=== PATIENT | male | born 1960 | race Caucasian/White ===

== ENCOUNTER 2017-06-24 15:40 | Emergency (ER) | payer BC ==
[2017-06-24 16:08] LABS: #Basophils 0.1 thou/uL (0.0-0.2); #Lymphocytes 1.3 thou/uL (1.20-3.40); #Monocytes 1.1 thou/uL (0.11-0.59); #Neutrophils 10.3 thou/uL (1.40-6.50); %Basophils 0.8 % (0.0-1.0); %Eosinophils 0.3 % (0.0-10.0); %Lymphocytes 9.8 % (21.0-51.0); %Monocytes 8.5 % (0.0-10.0); Hematocrit 41.5 % (42.0-52.0); Mean Platelet Volume 6.4 fL (7.4-10.4); Red Blood Cell (RBC) Count 4.22 mill/uL (4.70-6.10); White Blood Cell (WBC) Count 12.8 thou/uL (4.8-10.8)
[2017-06-24 16:33] LABS: ALT (SGPT) 114 U/L (8-55); AST (SGOT) 76 U/L (5-34); Alkaline Phosphatase 127 U/L (40-150); Anion Gap 14 mmol/L (10-20); BUN (Urea Nitrogen) 17 mg/dL (8.4-25.7); Bilirubin, Total 0.7 mg/dL (0.2-1.2); CK (CPK) 99 U/L (30-200); Calc. Creatinine Clearance 0 mL/min (70-130); Calcium 9.5 mg/dL (7.8-10.44); Carbon Dioxide 26 mmol/L (22-29); Chloride 98 mmol/L (98-107); Estimated GFR-MDRD 63; Globulin 3.6 g/dL (2.4-3.5); Lipase 47 U/L (8-78); Protein, Total 7.7 g/dL (6.0-8.3)
--- NOTE | 2017-06-24 16:33 | RAD ---
AP PORTABLE VIEW CHEST 06/24/17 HISTORY: Chest pain. Two AP views of the chest obtained on 06/24/17. Comparison made to previous exam from 08/15/16. AP view chest demonstrates an area of developed air space opacity in the right upper lobe concerning for right apical mass. This was not present on previous exam of 08/15/16 nor previous exam from 7. This may represent a right upper lobe pneumonia or newly developed mass. I do recommend correlatio n with history. Followup films to resolution is recommended. IMPRESSION: Right upper lobe developed opacity concerning for mass or area of pneumonia. POS: H
[2017-06-24 16:37] LABS: Troponin I Less than 0.010 ng/mL (< 0.028)
[2017-06-24] MEDS ORDERED: Acetaminophen 500 MG TAB ONE (16:41)
[2017-06-24] MEDS ORDERED: Ibuprofen 200 MG TAB ONE (21:18)
== END 2017-06-24 21:40 | disposition home or self-care (01) ==
LOC: ERS 15:40
DX: J18.9 Pneumonia, unspecified organism (principal); K21.9 Gastro-esophageal reflux disease without esophagitis; J45.909 Unspecified asthma, uncomplicated; F17.210 Nicotine dependence, cigarettes, uncomplicated
CPT/HCPCS: 36415; 71010; 80053; 82550; 82553; 83690; 84484; 85025; 87040; 93005; 94640; 96365; 96366; 96367; 99406; J0696; J1956

== ENCOUNTER 2017-06-29 17:19 | Inpatient (IN) | payer BC ==
[~2017-06-29 17:19] MED LIST: ISOVUE-370 76%-LOCM 1 ML ONE
[2017-06-29 18:24] LABS: #Eosinphils 0.1 thou/uL (0.0-0.7); #Lymphocytes 2.2 thou/uL (1.20-3.40); #Monocytes 0.9 thou/uL (0.11-0.59); #Neutrophils 10.1 thou/uL (1.40-6.50); %Eosinophils 0.8 % (0.0-10.0); %Lymphocytes 16.3 % (21.0-51.0); %Monocytes 6.6 % (0.0-10.0); Hematocrit 39.7 % (42.0-52.0); Red Blood Cell (RBC) Count 3.99 mill/uL (4.70-6.10); White Blood Cell (WBC) Count 13.3 thou/uL (4.8-10.8)
[2017-06-29 18:43] LABS: ALT (SGPT) 63 U/L (8-55); AST (SGOT) 25 U/L (5-34); Alkaline Phosphatase 132 U/L (40-150); Anion Gap 13 mmol/L (10-20); BUN (Urea Nitrogen) 11 mg/dL (8.4-25.7); Bilirubin, Total 0.5 mg/dL (0.2-1.2); Calc. Creatinine Clearance 0 mL/min (70-130); Calcium 9.7 mg/dL (7.8-10.44); Carbon Dioxide 27 mmol/L (22-29); Chloride 101 mmol/L (98-107); Estimated GFR-MDRD 75; Globulin 3.7 g/dL (2.4-3.5); Protein, Total 7.7 g/dL (6.0-8.3)
--- NOTE | 2017-06-29 19:39 | RAD ---
AP VIEW CHEST: 06/29/17 HISTORY: Pneumonia nine days ago. AP view chest is obtained on 06/29/17. Comparison made to previous exam from 06/24/17. AP view chest again demonstrates an area of opacity in the right upper lobe unchanged in size or shap e. Continue with followup radiographs electively. The left lung is well aerated. IMPRESSION: Right upper lobe opacity remains compatible with an area of pneumonia or mass. POS: [facility]
[2017-06-29 20:11] LABS: Troponin I Less than 0.010 ng/mL (< 0.028)
--- NOTE | 2017-06-29 21:43 | PDOC.EVN ---
Event Note - Event Note Event Note: [id number] H&P dictated 1. Pneumonia 2. sepsis 3. asthma plan: see orders
[2017-06-29] MEDS ORDERED: PROVENTIL INHALER 6.7 G (200 INHALATIONS) INH PRN (22:42)
--- NOTE | 2017-06-29 23:15 | CT ---
CONTRAST ENHANCED CT CHEST 06/29/17 HISTORY: Right upper lobe pneumonia versus mass, fever. Contrast enhanced CT of the chest is performed. IV contrast was given. There is a cavitary right upper lobe mass with central areas of necrosis. This may represent a right upper lobe mass versus cavitary pneumonia. There is an enlarged right paratracheal lymph node, diamet er measuring 8.8 x 14.8 mm. Mild right hilar enlarged lymph node also seen. Diameter measuring 16.6 x 11.4 mm. IMPRESSION: Right upper lobe cavitary mass with right paratracheal and right hilar lymph node enlargement. POS: [facility]
[2017-06-29 23:59] VITALS: BMI 29.6
--- NOTE | 2017-06-30 06:02 | HP ---
DATE OF ADMISSION: 06/29/2017 CHIEF COMPLAINT: Cough, fever. HISTORY OF PRESENT ILLNESS: Patient is 57-year-old male started having cough and fever past the last 3 weeks, associated with sputum production. Cough persisted. The patient then initially went to [facility] 2 weeks back. Patient was started on prednisone christine and also Z-Larry. Patient finished a course, symptoms did not improve. Patient then started having fever and chills also, so he came to the ER last . Patient was started on Levaquin. Patient took Levaquin for the past 5 days, b ut the fever persisted, associated with some cough and active fatigue also. Also complains of dyspne a. Denies any diarrhea, denies any bloody stools and denies any black stools. Symptoms persisted so he came to the ER. PAST MEDICAL HISTORY: Asthma. PAST SURGICAL HISTORY: Hysterectomy. ALLERGIES: CODEINE, PENICILLIN. SOCIAL HISTORY: Denies smoking, positive for alcohol, denies any drugs. MEDICATIONS: Reviewed. REVIEW OF SYSTEMS: Constitutional: Positive for fever and chills. Eyes: Denies any vision problem s. Ears: Denies any hearing loss. Neck: Denies any neck pain. Cardiovascular: Denies any chest pain, denies any palpitation. Respiratory: Positive for dyspnea. Positive for cough and sputum pro duction. Gastrointestinal: Denies nausea, vomiting. Cranial nerve system: Denies syncope. Psychi atric: Denies anxiety. Musculoskeletal: Denies any joint deformities. All other review of systems are reviewed and are negative. PHYSICAL EXAMINATION: CONSTITUTIONAL/VITAL SIGNS: At the time of H&P performed, blood pressure is 130/70, pulse ox 95%, af ebrile, respiratory rate 18. GENERAL: The patient appears tired. HEENT: Anterior nares patent. Nose normal. Ears normal. Teeth intact. Tongue is moist. NECK: Supple. No JVD. CARDIOVASCULAR SYSTEM: S1, S2 present. Regular rate and rhythm. No murmurs, no rubs, no gallops. RESPIRATORY SYSTEM: Positive for crackles, positive for diminished breath sounds on the right side. No accessory muscle seen. Normal effort. GASTROINTESTINAL: Abdomen soft, nontender, no guarding, no organomegaly, no masses felt. MUSCULOSKELETAL: No edema. CRANIAL NERVE SYSTEM: Awake, follows commands. Speech clear. PSYCHIATRIC: Mood appropriate at this time. LABORATORY DATA: At the time of H&P performed, influenza test is negative. BMP shows sodium 137, po tassium 4.4, chloride 101, CO2 of 27, BUN of 11, creatinine 1.02. AST 25, ALT 63, alkaline phosphata se 132, CK-MB 2.2, albumin 4, total protein 7.7, white count 13.3, hemoglobin 13.1, platelet count is 254,000. ASSESSMENT AND PLAN: The patient is a 57-year-old male. 1. Pneumonia. Plan to start the patient on IV Azactam and vancomycin also. Plan to consult Pulmona ry and ID to evaluate the patient. Chest x-ray positive for right upper lobe infiltrate. We will go ahead and get a CT chest to evaluate the infiltrate. Need to rule out any cavitary lesion also. Pl an to keep patient on AWOL precautions for now. 2. Sepsis secondary to pneumonia. Monitor white count. Repeat BMP in a.m. Plan to do blood cultur es. Plan to check Legionella, Streptococcus pneumonia, urinary antigen. 3. History of asthma. Continue breathing treatments. Monitor patient status closely. Case was discussed in detail with the patient.
[2017-06-30] MEDS ORDERED: Acetaminophen 325 MG TAB PO PRN (09:26)
[2017-06-30] MEDS: Aztreonam 2 GM in Sodium Chloride 0.9% 100 ML IVPB SCH ×2 (09:35→21:15)
[2017-06-30] MEDS: Enoxaparin Sodium 40 MG/0.4 ML SYRINGE SC SCH (09:42)
[2017-06-30] MEDS: Vancomycin HCl 1.5 GM in Sodium Chloride 0.9% 250 ML 300 ML IVPB SCH ×2 (11:35→22:39)
--- NOTE | 2017-06-30 12:49 | CON ---
DATE OF CONSULTATION: 30/06/2017 CONSULTING PHYSICIAN: Haider Hudson M.D. REASON FOR CONSULTATION: Right upper lobe mass/pneumonitis. HISTORY OF PRESENT ILLNESS: This is a 57-year-old male who became ill around . He prese nted to Urgent Care and was prescribed a Z-TRAM. He came back to the ER last and he had imag ing performed which demonstrated a right upper lobe density. He was prescribed Levaquin and he has t aken all the 2 pills. Despite that, he has had persistent cough. He has actually had some hemoptysi s. He has had about 10 pounds weight loss and he has been having night sweats. He came back to the emergency room last night with these symptoms. He was re-imaged and this included the performance of a CT scan which showed a cavitary right upper lobe mass measuring about 8 cm. He has some nonspecif ic mediastinal lymphadenopathy. He says he has no previous history of TB. 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 He denies any previous history of HIV. PAST MEDICAL HISTORY: Asthma. PAST SURGICAL HISTORY: Unremarkable. ALLERGIES: CODEINE, PENICILLIN, and SULFA DRUGS. SOCIAL HISTORY: He is a 2 pack per day smoker, now down to about 2 cigarettes per day. Occasionally consumes alcohol. He manages properties. MEDICATIONS PRIOR TO ADMISSION: Hydrocodone, Qvar, Proventil, and Nexium. REVIEW OF SYSTEMS: Remarkable for the night sweats, fever, chills, chest pain, hemoptysis and 10-phillip nd weight loss, otherwise negative. PHYSICAL EXAMINATION: VITAL SIGNS: Temperature is 99.0, pulse 72, respirations 20, O2 saturation 97%, blood pressure 115/7 3. GENERAL: He is a healthy-appearing male in no distress. HEENT: Pupils react. Sclerae anicteric. Oropharynx clear. NECK: No palpable adenopathy or JVD. LUNGS: He has crackles in the right upper lobe, best heard posteriorly. Left side is clear. CARDIAC: S1, S2 regular without murmur. ABDOMEN: Soft and nontender. EXTREMITIES: No clubbing, cyanosis, or edema. LABORATORY DATA: His flu test was negative. White blood cell count 13, hematocrit 39, platelet coun t 554. Sodium 137, potassium 4.4, chloride 101, CO2 27, BUN 11, creatinine 1.0, glucose 88. ASSESSMENT: Cavitary right upper lobe mass. Differential diagnoses would include abscessing pneumon ia, tuberculosis, and lung cancer. Certainly, he has symptoms that are very suggestive of tuberculos is. RECOMMENDATIONS: 1. Rule out TB with serial smears. Continue IV antibiotics as you are doing. Dr. Santos has been co nsulted and may want to add this, as I am not sure the current regimen provided enough anaerobic cove rage. 2. If AFBs are negative, then consider for bronchoscopy. 3. Check HIV test.
--- NOTE | 2017-06-30 14:32 | PDOC.PN ---
- Subjective Encounter Start Date: 06/30/17 Encounter Start Time: 09:40 Pt seen for followup re: pneumonia. Denies chest pain. Cough+. Sputum+. - Objective MAR Reviewed: Yes Vital Signs & Weight: Vital Signs (12 hours) Temp Pulse Resp BP Pulse Ox 06/30/17 11:38 97.7 F 78 20 108/69 96 06/30/17 08:00 97.7 F 78 20 115/73 96 06/30/17 04:00 98.3 F 80 18 111/69 97 Weight Weight 189 lb I&O: 06/29/17 06/30/17 07/01/17 06:59 06:59 06:59 Intake Total 600 Balance 600 Result Diagrams: 06/29/17 18:12 06/29/17 18:11 Phys Exam - Physical Examination Constitutional: NAD HEENT: PERRLA, moist MMs, sclera anicteric, oral pharynx no lesions Neck: no nodes, no JVD, supple, full ROM Respiratory: no wheezing, no rhonchi RUL crackles Cardiovascular: RRR, no rub Gastrointestinal: soft, non-tender, no distention, positive bowel sounds Musculoskeletal: pulses present Neurological: moves all 4 limbs Psychiatric: normal affect, A&O x 3 Skin: no rash, normal turgor, cap refill <2 seconds Dx/Plan (1) Pneumonia Code(s): J18.9 - PNEUMONIA, UNSPECIFIED ORGANISM Status: Acute (2) Cavitary lesion of lung Code(s): J98.4 - OTHER DISORDERS OF LUNG Status: Acute (3) Lung mass Code(s): R91.8 - OTHER NONSPECIFIC ABNORMAL FINDING OF LUNG FIELD Status: Suspected (4) Asthma Code(s): J45.909 - UNSPECIFIED ASTHMA, UNCOMPLICATED Status: Chronic - Plan continue antibiotics, DVT proph w/lovenox Continue IV antibiotics as below. Appreciate pulmonology and ID consults. Await sputum cultures. * . Review of Systems - Review of Systems Constitutional: Chills, Sweats. negative: Fever, Weakness, Malaise Respiratory: Cough, Sputum. negative: Dry, Shortness of Breath, Hemoptysis, SOB with Excertion, Pleuritic Pain, Wheezing Cardiovascular: negative: Chest Pain, Palpitations, Orthopnea, Paroxysmal Noc. Dyspnea, Edema, Light Headedness Gastrointestinal: negative: Nausea, Vomiting, Abdominal Pain, Diarrhea, Constipation, Melena, Hematochezia Genitourinary: negative: Dysuria, Frequency, Incontinence, Hematuria, Retention - Medications/Allergies Allergies/Adverse Reactions: Allergies Allergy/AdvReac Type Severity Reaction Status Date / Time codeine Allergy Hives, Verified 06/30/17 01:31 "and throat swells" Penicillins Allergy Hives, "my Verified 06/30/17 01:31 throat swells" Sulfa (Sulfonamide Allergy Verified 06/30/17 01:42 Antibiotics) Medications: Current Medications Acetaminophen (Tylenol) 650 mg PO Q6H PRN PRN Reason: Fever > 101 Albuterol Sulfate (Proventil Hfa) 2 puff INH Q6H PRN PRN Reason: SOB &/or Wheezing Enoxaparin Sodium (Lovenox) 40 mg SC 0900 [facility] Last Admin: 06/30/17 09:42 Dose: 40 mg Aztreonam 2 gm/ Sodium (Chloride) 100 mls @ 200 mls/hr IVPB Q12HR [facility] Last Admin: 06/30/17 09:35 Dose: 100 mls Vancomycin HCl 1.5 gm/ Sodium (Chloride) 300 mls @ 200 mls/hr IVPB 1000,2200 [facility] Last Admin: 06/30/17 11:35 Dose: 300 mls Metronidazole (Flagyl) 500 mg PO TID [facility] Pantoprazole Sodium (Protonix) 40 mg PO DAILY [facility] Last Admin: 06/30/17 09:44 Dose: 40 mg Sodium Chloride (Flush - Normal Saline) 10 ml IVF Q12HR [facility] Sodium Chloride (Flush - Normal Saline) 10 ml IVF PRN PRN PRN Reason: Saline Flush
[2017-06-30] MEDS: metroNIDAZOLE 500 MG TAB PO SCH ×2 (15:57→21:15)
--- NOTE | 2017-06-30 16:43 | CON ---
DATE OF CONSULTATION: 06/30/2017 REASON FOR CONSULTATION: Cavitary pneumonia. HISTORY OF PRESENT ILLNESS: A 57-year-old with history of asthma, prior episode of pneumonia few yea rs ago who has had symptoms of cough with fever, some hemoptysis since around about 3 weeks prior to admission. Patient was treated with courses of outpatient antimicrobial therapy and also received prednisone at the beginning and at the end he received Rocephin and levofloxacin witho ut improvement. Maybe noticed some improvement with the latest regimen, but then recrudescence. The patient has been admitted and Dr. Aden has seen the patient as well. Currently, he is awake and alert. No headaches. Coughing intermittently, still with some hemoptysis. No visual symptoms, sore throat. Some toothache intermittently. He had chest pain right anteriorly, but that has improved. No back pain. No abdominal pain, diarrhea, no genitourinary symptoms, no joint symptoms. No neurol ogical symptoms. PAST MEDICAL HISTORY: Asthma, prior episode of pneumonia and C-spine decompression with fusion. ALLERGIES: CODEINE AND PENICILLIN. PENICILLIN allergic reaction was angioedema with urticaria. SOCIAL HISTORY: Works in [employer]. He is , current smoker, drinks occasionally. MEDICATION LIST: Albuterol, aztreonam, levofloxacin, Protonix, vancomycin, and at home he takes Norc o for many years now. PHYSICAL EXAMINATION: VITAL SIGNS: T-max 99, blood pressure 115/73, pulse 72, respiratory rate 18, O2 sat 96%. GENERAL: Appears in no distress, no lymphadenopathy. HEENT: Ocular movements are conjugate. Oral cavity with quite a few missing teeth, remainder ones w ith a lot of decay and gum disease. NECK: Supple, no jugular venous distention. LUNGS: Inspiratory crackles in the right upper lobe. No wheezing. HEART: S1, S2, regular rate. No S3 or S4. ABDOMEN: Soft, not distended or tender. No ascites. No bladder distention. EXTREMITIES: No joint inflammatory activity. No edema. Pulses 2+ in dorsalis pedis. Cap refill le ss than 3 seconds. Moves all extremities equally. NEUROLOGIC: Cognitive function appears to be intact. LABORATORY DATA: HIV negative. White cell count 13,000, hemoglobin 13, MCV 99, platelets 554, 76% neutrophils. Sodiu m 137, creatinine 1.02, ALT 63, bilirubin 0.5, albumin 4.0. Chest x-ray showed a right upper lobe op acity and CT of chest with right upper lobe cavitary mass with peritracheal right hilar lymphadenopat hy. ASSESSMENT: Community-acquired pneumonia with cavitary changes, hemoptysis and paratracheal and vel r lymphadenopathy. DISCUSSION: Differential diagnosis includes some Mycobacterium tuberculosis infection versus anaerob ic or a resistant pathogen cavitary pneumonitis. For example, MRSA or a resistant gram negative or m alignancy. A fungal pneumonitis is less likely, vasculitis less likely as well. AFBs have been subm itted usually and cavitary pneumonia, those areas have high concentration of bacilli and then typical ly are smear positive. If this smear turns out to be negative, then we would have to consider the al ternate possibilities and may eventually require bronchoscopy. We will add anaerobic coverage. Disc ontinue Levaquin since it did not work in the outpatient setting. Continue aztreonam, vancomycin wit h Flagyl.
[2017-07-01] MEDS ORDERED: Atropine Sulfate 0.4 mg/1 ml Vial IM SCH (08:15)
[2017-07-01] MEDS ORDERED: Morphine PF 10 MG/10 ML VIAL IM SCH (08:15)
[2017-07-01] MEDS ORDERED: Lidocaine 4% PF 5 ML AMP NEB SCH (08:15)
[2017-07-01] MEDS: metroNIDAZOLE 500 MG TAB PO SCH ×3 (08:31→21:03)
[2017-07-01] MEDS: Enoxaparin Sodium 40 MG/0.4 ML SYRINGE SC SCH (08:31)
--- NOTE | 2017-07-01 08:31 | PRG ---
DATE OF SERVICE: 07/01/2017 PULMONARY AND CRITICAL CARE PROGRESS NOTE SUBJECTIVE: Mr. Villegas feels about the same. He has had no fever overnight. PHYSICAL EXAMINATION: VITAL SIGNS: On exam, his temperature is 98.4, pulse 77, respirations 18, O2 sat 95%, blood pressure 120/75. HEENT: Unremarkable. NECK: No JVD. LUNGS: Few crackles in the right upper lobe. CARDIAC: S1 and S2 regular. ABDOMEN: Soft. EXTREMITIES: No edema. ASSESSMENT: Cavitary right upper lobe pneumonia versus cancer. PLAN: 1. Await AFBs from today. If negative, proceed with bronchoscopy tomorrow. 2. Discussed risks of bronchoscopy with the patient including bleeding, infection, accidental lung p uncture. I also explained that he will be under conscious sedation for the procedure.
[2017-07-01] MEDS: Aztreonam 2 GM in Sodium Chloride 0.9% 100 ML IVPB SCH ×2 (09:02→21:03)
[2017-07-01] MEDS: Sodium Chloride 0.9% 1,000 ML IV SCH ×2 (09:10→22:23)
[2017-07-01 09:30] LABS: Vancomycin, Trough 13.2 ug/mL
[2017-07-01] MEDS: Vancomycin HCl 1.5 GM in Sodium Chloride 0.9% 250 ML 300 ML IVPB SCH ×2 (12:10→22:15)
--- NOTE | 2017-07-01 13:10 | PDOC.PN ---
- Subjective Encounter Start Date: 07/01/17 Encounter Start Time: 10:00 Pt seen for followup re; pneumonia. Cough+, sputum+, no chest pain. - Objective MAR Reviewed: Yes Vital Signs & Weight: Vital Signs (12 hours) Temp Pulse Resp BP Pulse Ox 07/01/17 08:00 97.3 F L 77 18 103/64 97 07/01/17 04:00 98.4 F 76 18 124/77 97 Weight Weight 189 lb I&O: 06/30/17 07/01/17 07/02/17 06:59 06:59 06:59 Intake Total 600 880 Balance 600 880 Result Diagrams: 06/29/17 18:12 06/29/17 18:11 Phys Exam - Physical Examination Constitutional: NAD HEENT: moist MMs Neck: supple RUL crackles Cardiovascular: RRR Gastrointestinal: soft Neurological: moves all 4 limbs Psychiatric: normal affect Skin: no rash Dx/Plan (1) Pneumonia Code(s): J18.9 - PNEUMONIA, UNSPECIFIED ORGANISM Status: Acute (2) Cavitary lesion of lung Code(s): J98.4 - OTHER DISORDERS OF LUNG Status: Acute (3) Lung mass Code(s): R91.8 - OTHER NONSPECIFIC ABNORMAL FINDING OF LUNG FIELD Status: Suspected (4) Asthma Code(s): J45.909 - UNSPECIFIED ASTHMA, UNCOMPLICATED Status: Chronic - Plan continue antibiotics, DVT proph w/lovenox * . Continue IV antibiotics as below. Pt being ruled out for TB. May need bronch. Appreciate ID/pulmonology services input. Review of Systems - Review of Systems Constitutional: negative: Fever, Chills, Sweats, Weakness, Malaise Respiratory: Cough, Sputum. negative: Dry, Shortness of Breath, Hemoptysis, SOB with Excertion, Pleuritic Pain, Wheezing Cardiovascular: negative: Chest Pain, Palpitations, Orthopnea, Paroxysmal Noc. Dyspnea, Edema, Light Headedness - Medications/Allergies Allergies/Adverse Reactions: Allergies Allergy/AdvReac Type Severity Reaction Status Date / Time codeine Allergy Hives, Verified 06/30/17 01:31 "and throat swells" Penicillins Allergy Hives, "my Verified 06/30/17 01:31 throat swells" Sulfa (Sulfonamide Allergy Verified 06/30/17 01:42 Antibiotics) Medications: Current Medications Acetaminophen (Tylenol) 650 mg PO Q6H PRN PRN Reason: Fever > 101 Albuterol Sulfate (Proventil Hfa) 2 puff INH Q6H PRN PRN Reason: SOB &/or Wheezing Albuterol/Ipratropium (Duoneb) 3 ml NEB [facility] Stop: 07/01/17 23:00 Atropine Sulfate (Atropine) 0.4 mg IM [facility] Stop: 07/01/17 21:00 Enoxaparin Sodium (Lovenox) 40 mg SC 0900 [facility] Last Admin: 07/01/17 08:31 Dose: 40 mg Aztreonam 2 gm/ Sodium (Chloride) 100 mls @ 200 mls/hr IVPB Q12HR [facility] Last Admin: 07/01/17 09:02 Dose: 100 mls Vancomycin HCl 1.5 gm/ Sodium (Chloride) 300 mls @ 200 mls/hr IVPB 1000,2200 [facility] Last Admin: 07/01/17 12:10 Dose: 300 mls Sodium Chloride (Normal Saline 0.9%) 1,000 mls @ 50 mls/hr IV .Q20H [facility] Last Admin: 07/01/17 09:10 Dose: Not Given Lidocaine HCl (Xylocaine 4% Pf) 5 ml NEB [facility] Stop: 07/01/17 23:00 Metronidazole (Flagyl) 500 mg PO TID [facility] Last Admin: 07/01/17 08:31 Dose: 500 mg Miscellaneous Medication (Pharmacy To Dose) 0 each IVPB [facility] Morphine Sulfate (Duramorph) 10 mg IM [facility] Stop: 07/01/17 23:00 Pantoprazole Sodium (Protonix) 40 mg PO DAILY [facility] Last Admin: 07/01/17 08:31 Dose: 40 mg Sodium Chloride (Flush - Normal Saline) 10 ml IVF Q12HR [facility] Last Admin: 07/01/17 08:29 Dose: 10 ml Sodium Chloride (Flush - Normal Saline) 10 ml IVF PRN PRN PRN Reason: Saline Flush
--- NOTE | 2017-07-01 15:43 | PQF ---
CLINICAL DOCUMENTATION IMPROVEMENT CLARIFICATION FORM: ICD-10 Updated PLEASE DO AN ADDENDUM TO THE PROGRESS NOTE WITH ANY DOCUMENTATION UPDATES OR ADDITIONS AND CARRY THROUGH TO DC SUMMARY. THANK YOU. DATE: 07/01/17 ATTN: DR. CORDOVA Please exercise your independent, professional judgment in responding to the clarification form. Clinical indicators are provided on the bottom of this form for your review Please check appropriate box(s) to clarify if the following diagnosis has been ruled in our ruled out: "SEPSIS" [ ] Ruled in diagnosis [ ] Continue to treat [ ] Resolved [ ] Ruled out diagnosis [ ] Cannot rule out diagnosis [ ] Other diagnosis [ X ] Unable to determine -- no documented fever in the record In addition, please specify: Present on Admission (POA): [ ] Yes [ ] No [ ] Unable to determine For continuity of documentation, please document condition throughout progress notes and discharge summary. Thank You. CLINICAL INDICATORS - SIGNS / SYMPTOMS / LABS "INTERMITTENT FEVER" PER ER NOTE H&P 06/29: "SEPSIS SECONDARY TO PNEUMONIA" WBC 13.3 RISKS: PNEUMONIA TREATMENT: IV VANCOMYCIN (ER-PRESENT) IV LEVAQUIN (GIVEN IN ER) IV AZACTAM (06/30-PRESENT) INFECTIOUS DISEASE CONSULT BLOOD AND SPUTUM CULTURES (This form is maintained as a part of the permanent medical record) 2014 [employer] All Rights Reserved CHRISTINE [email or web address] Office: [phone] GIOVANA
--- NOTE | 2017-07-01 16:10 | PRG ---
DATE OF SERVICE: 07/01/2017 SUBJECTIVE: Stable, less cough, no chest pain, no abdominal pain or diarrhea. OBJECTIVE: VITAL SIGNS: Normal. LUNGS: With scattered inspiratory crackles, right upper lobe. HEART: S1, S2, regular rate. ABDOMEN: Soft, not distended. EXTREMITIES: Moves all extremities equally. LABORATORY DATA: Vancomycin troughs of 13. No other labs at this point. Respiratory culture sample with lots of wbc's and polymicrobial carol. AFB is pending. ASSESSMENT AND DISCUSSION: Community-acquired pneumonia with cavitary changes. Still proceeding wit h workup as indicated previously and if AFBs are negative, it looks like he is going to end up with b ronchoscopy for diagnostic purposes.
[2017-07-01] MEDS ORDERED: Mag-Al 1200 mg/1200 mg/30 ML UDCUP PO PRN (23:29)
[2017-07-01] MEDS ORDERED: Calcium Carbonate 500 MG ChewTAB PO PRN (23:29)
[2017-07-02] MEDS ORDERED: Benzocaine 20% Spray 60 ML CAN ONE (09:24)
[2017-07-02] MEDS ORDERED: Midazolam HCl 2 mg/2 ml Vial ONE (09:29)
[2017-07-02] MEDS ORDERED: Fentanyl 100 MCG/2 ML VIAL ONE (09:29)
--- NOTE | 2017-07-02 09:30 | PDOC.PN ---
- Subjective Encounter Start Date: 07/02/17 Encounter Start Time: 08:20 Pt seen for followup re: pneumonia. Cough and sputum still present. No fevers. - Objective MAR Reviewed: Yes Vital Signs & Weight: Vital Signs (12 hours) Temp Pulse Resp BP Pulse Ox 07/02/17 08:00 98 F 71 20 108/69 95 07/02/17 06:00 98.1 F 86 16 124/82 97 Weight Weight 189 lb I&O: 07/01/17 07/02/17 07/03/17 06:59 06:59 06:59 Intake Total 880 1470 Balance 880 1470 Result Diagrams: 06/29/17 18:12 06/29/17 18:11 Phys Exam - Physical Examination Constitutional: NAD HEENT: moist MMs Neck: supple Respiratory: clear to auscultation bilateral Cardiovascular: RRR Gastrointestinal: soft Neurological: moves all 4 limbs Psychiatric: normal affect Dx/Plan (1) Pneumonia Code(s): J18.9 - PNEUMONIA, UNSPECIFIED ORGANISM Status: Acute (2) Cavitary lesion of lung Code(s): J98.4 - OTHER DISORDERS OF LUNG Status: Acute (3) Lung mass Code(s): R91.8 - OTHER NONSPECIFIC ABNORMAL FINDING OF LUNG FIELD Status: Suspected (4) Asthma Code(s): J45.909 - UNSPECIFIED ASTHMA, UNCOMPLICATED Status: Chronic - Plan plan discussed w/ family, continue antibiotics, out of bed/ambulate, DVT proph w /lovenox * . Continue IV antibiotics as below. Pt to go for bronch today. Pt and updated. Review of Systems - Review of Systems Constitutional: negative: Fever, Chills, Sweats, Weakness, Malaise Respiratory: Cough, Sputum. negative: Dry, Shortness of Breath, Hemoptysis, SOB with Excertion, Pleuritic Pain, Wheezing Cardiovascular: negative: Chest Pain, Palpitations, Orthopnea, Paroxysmal Noc. Dyspnea, Edema, Light Headedness - Medications/Allergies Allergies/Adverse Reactions: Allergies Allergy/AdvReac Type Severity Reaction Status Date / Time codeine Allergy Hives, Verified 06/30/17 01:31 "and throat swells" Penicillins Allergy Hives, "my Verified 06/30/17 01:31 throat swells" Sulfa (Sulfonamide Allergy Verified 06/30/17 01:42 Antibiotics) Medications: Current Medications Acetaminophen (Tylenol) 650 mg PO Q6H PRN PRN Reason: Fever > 101 Al Hydroxide/Mg Hydroxide (Maalox) 30 ml PO Q6H PRN PRN Reason: Heartburn or Indigestion Albuterol Sulfate (Proventil Hfa) 2 puff INH Q6H PRN PRN Reason: SOB &/or Wheezing Calcium Carbonate (Tums) 1,000 mg PO Q4H PRN PRN Reason: Heartburn or Indigestion Last Admin: 07/01/17 23:35 Dose: 1,000 mg Enoxaparin Sodium (Lovenox) 40 mg SC 0900 [facility] Last Admin: 07/01/17 08:31 Dose: 40 mg Aztreonam 2 gm/ Sodium (Chloride) 100 mls @ 200 mls/hr IVPB Q12HR [facility] Last Admin: 07/01/17 21:03 Dose: 100 mls Vancomycin HCl 1.5 gm/ Sodium (Chloride) 300 mls @ 200 mls/hr IVPB 1000,2200 [facility] Last Admin: 07/01/17 22:15 Dose: 300 mls Sodium Chloride (Normal Saline 0.9%) 1,000 mls @ 50 mls/hr IV .Q20H [facility] Last Admin: 07/01/17 22:23 Dose: 1,000 mls Metronidazole (Flagyl) 500 mg PO TID [facility] Last Admin: 07/01/17 21:03 Dose: 500 mg Miscellaneous Medication (Pharmacy To Dose) 0 each IVPB ASDIR [facility] Pantoprazole Sodium (Protonix) 40 mg PO DAILY [facility] Last Admin: 07/01/17 08:31 Dose: 40 mg Sodium Chloride (Flush - Normal Saline) 10 ml IVF Q12HR [facility] Last Admin: 07/01/17 21:08 Dose: 10 ml Sodium Chloride (Flush - Normal Saline) 10 ml IVF PRN PRN PRN Reason: Saline Flush
[2017-07-02 09:50] LABS: Vancomycin, Trough 13.7 ug/mL
[2017-07-02] MEDS ORDERED: Lidocaine 1% (PF) 30 ML VIAL ONE (10:03)
[2017-07-02] MEDS: Vancomycin HCl 1.5 GM in Sodium Chloride 0.9% 250 ML 300 ML IVPB SCH ×2 (10:54→22:30)
[2017-07-02] MEDS: Enoxaparin Sodium 40 MG/0.4 ML SYRINGE SC SCH (10:55)
[2017-07-02] MEDS: Aztreonam 2 GM in Sodium Chloride 0.9% 100 ML IVPB SCH ×2 (10:56→21:39)
--- NOTE | 2017-07-02 11:05 | OP ---
DATE OF PROCEDURE: 07/02/2017 PROCEDURE: Fiberoptic bronchoscopy with transbronchial biopsy, transbronchial brush and washings. ANESTHESIA: Conscious sedation plus local. DESCRIPTION OF PROCEDURE: Informed consent was obtained from the patient. He was taken to the opera tin room. He was placed on the fluoroscopy table. Oxygen was applied by nasal cannula. Cardiopulm onary monitoring devices were applied. The patient was given a total of 4 mg of Versed at the initia tion of the procedure along with 100 mcg of fentanyl. He required 2 more mg of Versed later in the p rocedure. Total duration procedure was about 30 minutes. Topical anesthetic with viscous lidocaine was applied to the right naris. A 1% lidocaine was applied to the vocal cords and the right main emir m bronchus and right upper lobe. Hurricaine Lynn was applied to the back of the throat. The Olympu s bronchoscope was placed in the right nostril. The vocal cords were identified and adducted normall y. The trachea was normal in appearance. The left upper lobe, left lower lobe and left main stem br onchus were normal in appearance. The right mainstem bronchus, right middle lobe and right lower lob e and right upper lobe were normal in appearance, aside from some mucoid secretions. The scope was p assed into the apical segment. No endobronchial lesions were identified, but the suspicious mass in the right upper lobe was biopsied with forceps and brushed. At the conclusion of the procedure, wash ings were obtained from the right upper lobe. He tolerated the procedure well aside from coughing. He was sent to the recovery area in stable condition.
[2017-07-02 12:55] LABS: #Eosinphils 0.1 thou/uL (0.0-0.7); #Lymphocytes 1.9 thou/uL (1.20-3.40); #Monocytes 0.8 thou/uL (0.11-0.59); #Neutrophils 10.3 thou/uL (1.40-6.50); %Basophils 0.3 % (0.0-1.0); %Eosinophils 0.8 % (0.0-10.0); %Lymphocytes 14.4 % (21.0-51.0); %Monocytes 6.4 % (0.0-10.0); Hematocrit 42.7 % (42.0-52.0); Mean Platelet Volume 6.2 fL (7.4-10.4); Red Blood Cell (RBC) Count 4.27 mill/uL (4.70-6.10); White Blood Cell (WBC) Count 13.1 thou/uL (4.8-10.8)
[2017-07-02] MEDS: metroNIDAZOLE 500 MG TAB PO SCH ×3 (15:48→21:38)
[2017-07-02] MEDS ORDERED: traMADol HCl 50 MG TAB PO PRN (20:58)
[2017-07-02] MEDS ORDERED: traMADol HCl 50 MG TAB PO SCH (21:00)
[2017-07-02] MEDS ORDERED: Melatonin 3 MG TAB PO SCH (21:45)
[2017-07-03] MEDS: Sodium Chloride 0.9% 1,000 ML IV SCH (06:35)
[2017-07-03] MEDS: HYDROcodone/Acetaminophen 5/325 mg Tablet PO PRN ×3 (09:14→20:42)
[2017-07-03] MEDS: Enoxaparin Sodium 40 MG/0.4 ML SYRINGE SC SCH (09:16)
[2017-07-03] MEDS: metroNIDAZOLE 500 MG TAB PO SCH ×3 (09:16→20:42)
[2017-07-03] MEDS: Aztreonam 2 GM in Sodium Chloride 0.9% 100 ML IVPB SCH ×2 (09:19→20:41)
--- NOTE | 2017-07-03 11:45 | PRG ---
DATE OF SERVICE: 07/03/2017 SUBJECTIVE: Awake, alert, and responsive. No distress. Await results of his bronch. OBJECTIVE: VITAL SIGNS: Temperature 97, pulse 71, blood pressure 123/70, respiration rate 16. CHEST: No wheezing. CARDIAC: Normal S1, S2. LABORATORY DATA: White count is normal. H&H are unremarkable. IMPRESSION: Upper lung mass, rule out TB, fungus, malignancy. Await results of the bronch. Continue antibiotics, supportive care.
[2017-07-03] MEDS: Vancomycin HCl 1.5 GM in Sodium Chloride 0.9% 250 ML 300 ML IVPB SCH ×2 (12:33→22:10)
--- NOTE | 2017-07-03 13:57 | PDOC.PN ---
- Subjective Encounter Start Date: 07/03/17 Encounter Start Time: 09:20 Pt seen for followup re: pneumonia. Cough still +, productive. - Objective Vital Signs & Weight: Vital Signs (12 hours) Temp Pulse Resp BP Pulse Ox 07/03/17 11:22 98.0 F 79 18 108/68 95 07/03/17 08:00 97.9 F 71 16 123/70 96 07/03/17 04:50 98.0 F 86 14 112/66 95 Weight Weight 189 lb I&O: 07/02/17 07/03/17 07/04/17 06:59 06:59 06:59 Intake Total 1470 1120 600 Balance 1470 1120 600 Result Diagrams: 07/02/17 12:17 06/29/17 18:11 Phys Exam - Physical Examination Constitutional: NAD HEENT: moist MMs Neck: supple Respiratory: clear to auscultation bilateral Cardiovascular: RRR Gastrointestinal: soft Musculoskeletal: pulses present Neurological: moves all 4 limbs Psychiatric: normal affect Skin: no rash Dx/Plan (1) Pneumonia Code(s): J18.9 - PNEUMONIA, UNSPECIFIED ORGANISM Status: Acute (2) Cavitary lesion of lung Code(s): J98.4 - OTHER DISORDERS OF LUNG Status: Acute (3) Lung mass Code(s): R91.8 - OTHER NONSPECIFIC ABNORMAL FINDING OF LUNG FIELD Status: Suspected (4) Asthma Code(s): J45.909 - UNSPECIFIED ASTHMA, UNCOMPLICATED Status: Chronic - Plan continue antibiotics, out of bed/ambulate, DVT proph w/lovenox * . * s/p bronchoscopy, await cultures/cytology. * Continue Iv antibiotics as below. Review of Systems - Review of Systems Respiratory: Cough, Sputum Cardiovascular: negative: Chest Pain, Palpitations, Orthopnea, Paroxysmal Noc. Dyspnea, Edema, Light Headedness Gastrointestinal: negative: Nausea, Vomiting, Abdominal Pain, Diarrhea, Constipation, Melena, Hematochezia - Medications/Allergies Allergies/Adverse Reactions: Allergies Allergy/AdvReac Type Severity Reaction Status Date / Time codeine Allergy Hives, Verified 06/30/17 01:31 "and throat swells" Penicillins Allergy Hives, "my Verified 06/30/17 01:31 throat swells" Sulfa (Sulfonamide Allergy Verified 06/30/17 01:42 Antibiotics) Medications: Current Medications Acetaminophen (Tylenol) 650 mg PO Q6H PRN PRN Reason: Fever > 101 Last Admin: 07/02/17 21:38 Dose: 650 mg Hydrocodone Bitart/Acetaminophen ([place] 5/325) 1 tab PO Q4H PRN PRN Reason: Pain Last Admin: 07/03/17 09:14 Dose: 1 tab Al Hydroxide/Mg Hydroxide (Maalox) 30 ml PO Q6H PRN PRN Reason: Heartburn or Indigestion Albuterol Sulfate (Proventil Hfa) 2 puff INH Q6H PRN PRN Reason: SOB &/or Wheezing Calcium Carbonate (Tums) 1,000 mg PO Q4H PRN PRN Reason: Heartburn or Indigestion Last Admin: 07/01/17 23:35 Dose: 1,000 mg Enoxaparin Sodium (Lovenox) 40 mg SC 0900 [facility] Last Admin: 07/03/17 09:16 Dose: 40 mg Aztreonam 2 gm/ Sodium (Chloride) 100 mls @ 200 mls/hr IVPB Q12HR [facility] Last Admin: 07/03/17 09:19 Dose: 100 mls Vancomycin HCl 1.5 gm/ Sodium (Chloride) 300 mls @ 200 mls/hr IVPB 1000,2200 [facility] Last Admin: 07/03/17 12:33 Dose: 300 mls Sodium Chloride (Normal Saline 0.9%) 1,000 mls @ 50 mls/hr IV .Q20H [facility] Last Admin: 07/03/17 06:35 Dose: 1,000 mls Melatonin (Melatonin) 3 mg PO HS [facility] Metronidazole (Flagyl) 500 mg PO TID [facility] Last Admin: 07/03/17 09:16 Dose: 500 mg Miscellaneous Medication (Pharmacy To Dose) 0 each IVPB ASDIR [facility] Pantoprazole Sodium (Protonix) 40 mg PO DAILY [facility] Last Admin: 07/03/17 09:16 Dose: 40 mg Sodium Chloride (Flush - Normal Saline) 10 ml IVF Q12HR [facility] Last Admin: 07/03/17 09:19 Dose: 10 ml Sodium Chloride (Flush - Normal Saline) 10 ml IVF PRN PRN PRN Reason: Saline Flush Tramadol HCl (Ultram) 50 mg PO Q6H PRN PRN Reason: Pain Last Admin: 07/03/17 07:16 Dose: 50 mg
[2017-07-03] MEDS: Melatonin 3 MG TAB PO SCH (20:43)
[2017-07-04] MEDS: HYDROcodone/Acetaminophen 5/325 mg Tablet PO PRN ×2 (06:37→20:44)
[2017-07-04] MEDS: metroNIDAZOLE 500 MG TAB PO SCH ×3 (08:54→20:44)
[2017-07-04] MEDS: Enoxaparin Sodium 40 MG/0.4 ML SYRINGE SC SCH (08:55)
[2017-07-04] MEDS: Aztreonam 2 GM in Sodium Chloride 0.9% 100 ML IVPB SCH (08:55)
[2017-07-04 09:21] LABS: Vancomycin, Trough 17.3 ug/mL
[2017-07-04] MEDS: Vancomycin HCl 1.5 GM in Sodium Chloride 0.9% 250 ML 300 ML IVPB SCH (10:34)
[2017-07-04] MEDS: Sodium Chloride 0.9% 1,000 ML IV SCH ×2 (10:35→15:00)
--- NOTE | 2017-07-04 14:36 | PDOC.PN ---
- Subjective Encounter Start Date: 07/04/17 Encounter Start Time: 11:00 Pt seen for followup re: pneumonia. feels slightly better. Walking around. - Objective MAR Reviewed: Yes Vital Signs & Weight: Vital Signs (12 hours) Temp Pulse Resp BP Pulse Ox 07/04/17 11:37 97.9 F 74 16 115/68 95 07/04/17 08:00 98.3 F 63 16 95 07/04/17 07:49 98.3 F 63 16 121/78 95 07/04/17 04:34 97 Weight Weight 189 lb I&O: 07/03/17 07/04/17 07/05/17 06:59 06:59 06:59 Intake Total 1120 2670 Balance 1120 2670 Result Diagrams: 07/02/17 12:17 06/29/17 18:11 Phys Exam - Physical Examination Constitutional: NAD HEENT: moist MMs Neck: supple Respiratory: clear to auscultation bilateral Cardiovascular: RRR Gastrointestinal: soft Musculoskeletal: no edema Neurological: moves all 4 limbs Psychiatric: normal affect Dx/Plan (1) Pneumonia Code(s): J18.9 - PNEUMONIA, UNSPECIFIED ORGANISM Status: Acute (2) Cavitary lesion of lung Code(s): J98.4 - OTHER DISORDERS OF LUNG Status: Acute (3) Lung mass Code(s): R91.8 - OTHER NONSPECIFIC ABNORMAL FINDING OF LUNG FIELD Status: Suspected (4) Asthma Code(s): J45.909 - UNSPECIFIED ASTHMA, UNCOMPLICATED Status: Chronic - Plan continue antibiotics, out of bed/ambulate, DVT proph w/lovenox * . Await path report. Continue IV antibiotics as below. Await BAL cultures. Review of Systems - Review of Systems Respiratory: Cough, Sputum. negative: Dry, Shortness of Breath, Hemoptysis, SOB with Excertion, Pleuritic Pain, Wheezing Cardiovascular: negative: Chest Pain, Palpitations, Orthopnea, Paroxysmal Noc. Dyspnea, Edema, Light Headedness - Medications/Allergies Allergies/Adverse Reactions: Allergies Allergy/AdvReac Type Severity Reaction Status Date / Time codeine Allergy Hives, Verified 06/30/17 01:31 "and throat swells" Penicillins Allergy Hives, "my Verified 06/30/17 01:31 throat swells" Sulfa (Sulfonamide Allergy Verified 06/30/17 01:42 Antibiotics) Medications: Current Medications Acetaminophen (Tylenol) 650 mg PO Q6H PRN PRN Reason: Fever > 101 Last Admin: 07/02/17 21:38 Dose: 650 mg Hydrocodone Bitart/Acetaminophen ([place] 5/325) 1 tab PO Q4H PRN PRN Reason: Pain Last Admin: 07/04/17 06:37 Dose: 1 tab Al Hydroxide/Mg Hydroxide (Maalox) 30 ml PO Q6H PRN PRN Reason: Heartburn or Indigestion Albuterol Sulfate (Proventil Hfa) 2 puff INH Q6H PRN PRN Reason: SOB &/or Wheezing Calcium Carbonate (Tums) 1,000 mg PO Q4H PRN PRN Reason: Heartburn or Indigestion Last Admin: 07/01/17 23:35 Dose: 1,000 mg Cefdinir (Omnicef) 300 mg PO BID [facility] Enoxaparin Sodium (Lovenox) 40 mg SC 0900 [facility] Last Admin: 07/04/17 08:55 Dose: 40 mg Sodium Chloride (Normal Saline 0.9%) 1,000 mls @ 50 mls/hr IV .Q20H [facility] Last Admin: 07/04/17 10:35 Dose: 1,000 mls Melatonin (Melatonin) 3 mg PO HS [facility] Last Admin: 07/03/17 20:43 Dose: 3 mg Metronidazole (Flagyl) 500 mg PO TID [facility] Last Admin: 07/04/17 08:54 Dose: 500 mg Miscellaneous Medication (Pharmacy To Dose) 0 each IVPB ASDIR [facility] Pantoprazole Sodium (Protonix) 40 mg PO DAILY [facility] Last Admin: 07/04/17 08:55 Dose: 40 mg Sodium Chloride (Flush - Normal Saline) 10 ml IVF Q12HR [facility] Last Admin: 07/04/17 10:36 Dose: Not Given Sodium Chloride (Flush - Normal Saline) 10 ml IVF PRN PRN PRN Reason: Saline Flush Tramadol HCl (Ultram) 50 mg PO Q6H PRN PRN Reason: Pain Last Admin: 07/03/17 07:16 Dose: 50 mg
--- NOTE | 2017-07-04 16:44 | PRG ---
DATE OF SERVICE: 07/04/2017 SUBJECTIVE: The patient is status post bronchoscopy. PHYSICAL EXAMINATION: VITAL SIGNS: Temperature 98, sats 95%, respirations 16, pulse 63, temperature 27. Denies any diffic ulty breathing or cough. CHEST: Decreased breath sounds, no wheezing. CARDIAC: Normal S1 and S2. ABDOMEN: Soft. No masses. LABORATORY DATA: So far all his acid-fast bronch washings are negative. IMPRESSION: Right upper lung mass, cavitary; rule out tuberculosis, fungus, malignancy. PLAN: Await path report, probably deescalate antibiotics.
[2017-07-04] MEDS: Melatonin 3 MG TAB PO SCH (20:44)
[2017-07-04] MEDS: Cefdinir 300 MG CAP PO SCH (20:44)
[2017-07-05 04:26] LABS: #Eosinphils 0.3 thou/uL (0.0-0.7); #Lymphocytes 2.1 thou/uL (1.20-3.40); #Monocytes 0.7 thou/uL (0.11-0.59); #Neutrophils 6.3 thou/uL (1.40-6.50); %Basophils 0.2 % (0.0-1.0); %Eosinophils 2.8 % (0.0-10.0); %Lymphocytes 22.3 % (21.0-51.0); %Monocytes 7.9 % (0.0-10.0); Hematocrit 35.8 % (42.0-52.0); Red Blood Cell (RBC) Count 3.61 mill/uL (4.70-6.10); White Blood Cell (WBC) Count 9.4 thou/uL (4.8-10.8)
[2017-07-05 04:38] LABS: Anion Gap 13 mmol/L (10-20); BUN (Urea Nitrogen) 11 mg/dL (8.4-25.7); Calc. Creatinine Clearance 110 mL/min (70-130); Calcium 8.9 mg/dL (7.8-10.44); Carbon Dioxide 27 mmol/L (22-29); Chloride 105 mmol/L (98-107); Estimated GFR-MDRD 88
[2017-07-05] MEDS: Cefdinir 300 MG CAP PO SCH ×2 (08:18→21:55)
[2017-07-05] MEDS: Enoxaparin Sodium 40 MG/0.4 ML SYRINGE SC SCH (08:18)
[2017-07-05] MEDS: metroNIDAZOLE 500 MG TAB PO SCH ×3 (08:18→21:55)
--- NOTE | 2017-07-05 08:41 | PRG ---
DATE OF SERVICE: 07/05/2017 SUBJECTIVE: The patient feels better, had no acute complaints. PHYSICAL EXAMINATION: VITAL SIGNS: Temperature is 97.5, pulse 64, respiratory rate 16, O2 saturation 97%, blood pressure 1 11/75. HEENT: Unremarkable. NECK: No JVD. LUNGS: Fairly clear except for some wheezing in the right upper lobe. CARDIAC: S1 and S2 regular. ABDOMEN: Soft. EXTREMITIES: No edema. LABORATORY DATA: His AFB from bronchoscopy and sputum studies was negative. The pathology report is pending. ASSESSMENT: Lung abscess versus right upper lobe cancer. RECOMMENDATIONS: 1. Biopsy results should be back later today. If negative, then he will need a repeat CT scan in ab out 3 weeks. 2. Continue the antibiotics. We might want to have Dr. Santos's final recommendations for duration o f treatment for lung abscess before the patient goes home. 3. The patient should be able to go home latest by tomorrow.
[2017-07-05] MEDS: HYDROcodone/Acetaminophen 5/325 mg Tablet PO PRN ×3 (09:22→21:55)
[2017-07-05] MEDS: Sodium Chloride 0.9% 1,000 ML IV SCH (11:18)
--- NOTE | 2017-07-05 14:50 | RAD ---
TWO VIEWS CHEST: Date: 07-05-17 Comparison: 06-29-17 History: Cough. History of pneumonia. FINDINGS: There is a focal area of opacity within the right lung apex, improved when compared to 06-24-17 exam. No pneumothorax or pleural fluid. Heart and mediastinal contours are grossly unremarkable. There is i ncompletely assessed hardware overlying the cervical spine. IMPRESSION: Focal area of airspace disease noted in right lung apex, improved since 06-24-17, suggesting improving pneumonia. Significant opacity persists and thus, follow up to full resolution is advised to exclude an underlying mass. In addition to typical organisms, atypical infectious processes within the right lung apex, including tuberculosis, should be considered. POS: [facility]
--- NOTE | 2017-07-05 15:01 | PDOC.PN ---
- Subjective Encounter Start Date: 07/05/17 Encounter Start Time: 09:20 Pt seen for followup re: pneumonia. Cough better, feels better. - Objective Vital Signs & Weight: Vital Signs (12 hours) Temp Pulse Resp BP Pulse Ox 07/05/17 13:53 61 14 07/05/17 08:00 97.5 F L 64 16 97 07/05/17 07:50 97.5 F L 64 16 111/75 97 Weight Weight 189 lb I&O: 07/04/17 07/05/17 07/06/17 06:59 06:59 06:59 Intake Total 2670 Balance 2670 Result Diagrams: 07/05/17 03:57 07/05/17 03:57 Phys Exam - Physical Examination Constitutional: NAD HEENT: moist MMs Neck: supple Respiratory: clear to auscultation bilateral Cardiovascular: RRR Gastrointestinal: soft Neurological: moves all 4 limbs Psychiatric: normal affect Skin: no rash Dx/Plan (1) Pneumonia Code(s): J18.9 - PNEUMONIA, UNSPECIFIED ORGANISM Status: Acute (2) Cavitary lesion of lung Code(s): J98.4 - OTHER DISORDERS OF LUNG Status: Acute (3) Lung mass Code(s): R91.8 - OTHER NONSPECIFIC ABNORMAL FINDING OF LUNG FIELD Status: Suspected (4) Asthma Code(s): J45.909 - UNSPECIFIED ASTHMA, UNCOMPLICATED Status: Chronic - Plan continue antibiotics, PT/OT, out of bed/ambulate, DVT proph w/lovenox * . Continue antibiotics, await path result. Ambulate pt. Review of Systems - Review of Systems Constitutional: negative: Fever, Chills, Sweats, Weakness, Malaise Respiratory: Cough, Sputum. negative: Dry, Shortness of Breath, Hemoptysis, SOB with Excertion, Pleuritic Pain, Wheezing - Medications/Allergies Allergies/Adverse Reactions: Allergies Allergy/AdvReac Type Severity Reaction Status Date / Time codeine Allergy Hives, Verified 06/30/17 01:31 "and throat swells" Penicillins Allergy Hives, "my Verified 06/30/17 01:31 throat swells" Sulfa (Sulfonamide Allergy Verified 06/30/17 01:42 Antibiotics) Medications: Current Medications Acetaminophen (Tylenol) 650 mg PO Q6H PRN PRN Reason: Fever > 101 Last Admin: 07/02/17 21:38 Dose: 650 mg Hydrocodone Bitart/Acetaminophen ([place] 5/325) 1 tab PO Q4H PRN PRN Reason: Pain Last Admin: 07/05/17 14:55 Dose: 1 tab Al Hydroxide/Mg Hydroxide (Maalox) 30 ml PO Q6H PRN PRN Reason: Heartburn or Indigestion Albuterol Sulfate (Proventil Hfa) 2 puff INH Q6H PRN PRN Reason: SOB &/or Wheezing Albuterol/Ipratropium (Duoneb) 3 ml NEB [id number] Last Admin: 07/05/17 13:53 Dose: 3 ml Calcium Carbonate (Tums) 1,000 mg PO Q4H PRN PRN Reason: Heartburn or Indigestion Last Admin: 07/01/17 23:35 Dose: 1,000 mg Cefdinir (Omnicef) 300 mg PO BID [facility] Last Admin: 07/05/17 08:18 Dose: 300 mg Enoxaparin Sodium (Lovenox) 40 mg SC 0900 [facility] Last Admin: 07/05/17 08:18 Dose: 40 mg Sodium Chloride (Normal Saline 0.9%) 1,000 mls @ 50 mls/hr IV .Q20H [facility] Last Admin: 07/05/17 11:18 Dose: Not Given Melatonin (Melatonin) 3 mg PO HS [facility] Last Admin: 07/04/17 20:44 Dose: 3 mg Metronidazole (Flagyl) 500 mg PO TID [facility] Last Admin: 07/05/17 14:55 Dose: 500 mg Pantoprazole Sodium (Protonix) 40 mg PO DAILY [facility] Last Admin: 07/05/17 08:18 Dose: 40 mg Sodium Chloride (Flush - Normal Saline) 10 ml IVF Q12HR [facility] Last Admin: 07/05/17 08:19 Dose: 10 ml Sodium Chloride (Flush - Normal Saline) 10 ml IVF PRN PRN PRN Reason: Saline Flush Tramadol HCl (Ultram) 50 mg PO Q6H PRN PRN Reason: Pain Last Admin: 07/03/17 07:16 Dose: 50 mg
[2017-07-05] MEDS: Melatonin 3 MG TAB PO SCH (21:55)
[2017-07-06 04:34] LABS: #Basophils 0.1 thou/uL (0.0-0.2); #Eosinphils 0.2 thou/uL (0.0-0.7); #Lymphocytes 2.4 thou/uL (1.20-3.40); #Monocytes 0.6 thou/uL (0.11-0.59); #Neutrophils 7.1 thou/uL (1.40-6.50); %Basophils 0.8 % (0.0-1.0); %Lymphocytes 22.8 % (21.0-51.0); Hematocrit 36.3 % (42.0-52.0); Mean Platelet Volume 6.1 fL (7.4-10.4); Red Blood Cell (RBC) Count 3.65 mill/uL (4.70-6.10); White Blood Cell (WBC) Count 10.4 thou/uL (4.8-10.8)
[2017-07-06 04:51] LABS: Anion Gap 12 mmol/L (10-20); BUN (Urea Nitrogen) 13 mg/dL (8.4-25.7); Calc. Creatinine Clearance 102 mL/min (70-130); Calcium 9.1 mg/dL (7.8-10.44); Carbon Dioxide 27 mmol/L (22-29); Chloride 104 mmol/L (98-107); Estimated GFR-MDRD 80
[2017-07-06] MEDS: Enoxaparin Sodium 40 MG/0.4 ML SYRINGE SC SCH (09:20)
[2017-07-06] MEDS: Cefdinir 300 MG CAP PO SCH (09:20)
[2017-07-06] MEDS: metroNIDAZOLE 500 MG TAB PO SCH (09:20)
[2017-07-06] MEDS: Sodium Chloride 0.9% 1,000 ML IV SCH (09:22)
--- NOTE | 2017-07-06 09:49 | PRG ---
DATE OF SERVICE: 07/06/2017 SUBJECTIVE: The pathology from his bronchoscopy procedure is still pending. He feels better and has no complaints. PHYSICAL EXAMINATION: VITAL SIGNS: Temperature 98.1, pulse 59, respiration rate 16, O2 sat 93%, blood pressure 121/79. HEENT: Unremarkable. NECK: Supple. No JVD. CHEST: Clear. CARDIAC: S1 and S2 regular. ABDOMEN: Soft. EXTREMITIES: No edema. LABORATORY DATA: White blood cell count 10.4, hematocrit 36.3, platelet count 561. Sodium 139, pota ssium 3.9, BUN 13, creatinine 0.9, glucose 135. ASSESSMENT: Right upper lobe pneumonia with improving chest x-ray. RECOMMENDATION: I would send him home on a total of 14 days of Urmilaicef and Flagyl between what he re ceived in the hospital and what he does it at home. He needs to follow up in the office in 3-4 weeks and have his x-ray repeated. He can safely be discharged today and we can call him with his patholo gy results when they return.
--- NOTE | 2017-07-06 12:03 | DIS ---
DATE OF ADMISSION: 06/29/2017 DATE OF DISCHARGE: 07/06/2017 PRIMARY CARE PHYSICIAN: Dion Buchanan M.D. DISCHARGE DIAGNOSES: 1. Pneumonia. 2. Cavitary lesion of the lung. 3. Suspected lung mass. CONSULTATIONS DURING THIS HOSPITALIZATION: Infectious Diseases, Dr. Santos and Pulmonology, Dr. Clement er. CONDITION OF PATIENT ON THE DAY OF DISCHARGE: Stable. I saw Mr. Villegas on the day of discharge. He denies any chest pain or shortness of breath. Vital s igns are stable. S1 and S2 are heard, regular. Lungs are clear to auscultation bilaterally. DISCHARGE MEDICATIONS: Proventil HFA 2 puffs p.r.n., Qvar 1 puff 2 times a day, Nexium 20 mg daily, [place] p.r.n., Flagyl 500 mg 3 times a day for 14 more days, Omnicef 300 mg 2 times a day for 14 more days. HOSPITAL COURSE: Mr. Villegas is a pleasant 57-year-old gentleman who was admitted to [facility] for pneumonia. CT scan of the chest done at the time of admission showed right up per lobe cavitary mass with right paratracheal and right hilar lymph node enlargement. He was seen b y Pulmonology and Infectious Diseases services. He received intravenous antibiotics. He also had 3 negative smears for acid fast bacilli. Cultures are pending at the time of this dictation. On 07/02, he underwent bronchoscopy with transbronchial biopsy, transbronchial brush and washings. The biopsy report is pending at the time of discharge. The bronchial washings reports are also pending. Pulmonary Service will follow up with him in this regard. He improved clinically with antibiotics. He has been stepped down to oral antibiotics. Treatment du ration is 3 weeks total. He has been advised to stop smoking. On the day of discharge, he has a white count of 10,400, hemoglobin 12.2 and platelet count 561,000. Electrolytes are normal. Creatinine is 0.96. He is advised to return to work as tolerated, starting 07/13/2017. Many thanks for allowing me to participate in your patient's care. Please feel free to contact me if any questions or concerns. FOLLOWUP APPOINTMENTS: Patient is advised to follow up with his primary care physician in 3-5 days a nd with Pulmonology in 3-4 weeks. DISCHARGE DESTINATION: Home. TOTAL AMOUNT OF TIME SPENT COORDINATING THIS DISCHARGE: 33 minutes.
[2017-07-06 13:28] VITALS: BP 133/84; TEMP 98
== END 2017-07-06 13:20 | disposition home or self-care (01) | DRG 195 ==
LOC: ERS 17:19 → T4-B 20:46
PROVIDERS: ADMIT Internal Medicine; ATTEND Internal Medicine
PROC: 0BDC8ZX Extraction of Right Upper Lung Lobe, Via Natural or Artificial Opening Endoscopic, Diagnostic (ICD-10-PCS; principal; 2017-07-02)
DX: J18.9 Pneumonia, unspecified organism (principal); F17.210 Nicotine dependence, cigarettes, uncomplicated; J45.909 Unspecified asthma, uncomplicated; R59.1 Generalized enlarged lymph nodes; R91.8 Other nonspecific abnormal finding of lung field
CPT/HCPCS: 36415; 71010; 71020; 71260; 80048; 80053; 80202; 82553; 84484; 85025; 86480; 87040; 87070; 87102; 87116; 87205; 87206; 87389; 88104; 88112; 88305; 88312; 93005; 94640; 94760; 96365; 96375; 99152; 99153; 99406; A4216; J1650; J1956; J2001; J2250; J3010; J3370; J3490; J7050; J7620

== ENCOUNTER 2017-08-02 10:26 | Outpatient (CLI) | payer BC ==
--- NOTE | 2017-08-02 11:42 | RAD ---
CHEST 2 VIEWS: DATE: 08/02/17 HISTORY: Dyspnea. COMPARISON: 07/05/17. FINDINGS: Cardiac silhouette and pulmonary vasculature are unremarkable. Mediastinum is midline with postoperat devendra changes of the cervicothoracic spine. Ill-defined parenchymal opacity at the right apex is less p ronounced than on the previous exam. Lungs are otherwise hyperinflated. IMPRESSION: 1. Continued improved aeration of the right apex. 2. COPD. POS: [facility]
== END 2017-08-02 10:27 | disposition home or self-care (01) ==
LOC: RAD 10:26
PROVIDERS: ATTEND Internal Medicine Critical Care Medicine
DX: R06.00 Dyspnea, unspecified (principal); J44.9 Chronic obstructive pulmonary disease, unspecified
CPT/HCPCS: 71046

== ENCOUNTER 2017-10-11 16:25 | Outpatient (CLI) | payer BC ==
--- NOTE | 2017-10-11 17:11 | RAD ---
LEFT KNEE FOUR VIEWS: Date: 10-11-17 Indication: Pain left knee. Comparison: None. FINDINGS: No significant knee joint effusion. No acute fracture. No malalignment. IMPRESSION: No acute abnormality. If clinically warranted, MRI examination is recommended. POS: [facility]
--- NOTE | 2017-10-11 17:56 | RAD ---
LEFT HIP 2 VIEWS: Date: 10/11/17 HISTORY: Pain. COMPARISON: None. FINDINGS: Avascular necrosis present in left femoral head. Focal articular collapse of the superior articular m argin. No acute subluxation. 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 POS: [facility]
== END 2017-10-11 16:26 | disposition home or self-care (01) ==
LOC: SCSRAD 16:25
PROVIDERS: ATTEND Nurse Practitioner Family
DX: M25.552 Pain in left hip (principal); M25.562 Pain in left knee; M87.9 Osteonecrosis, unspecified

== ENCOUNTER 2017-10-28 10:33 | Outpatient (CLI) | payer BC ==
--- NOTE | 2017-10-28 11:13 | RAD ---
2 VIEWS CHEST: Date: 10/28/17 COMPARISON: 08/02/17. HISTORY: Dyspnea. FINDINGS: Two views of the chest show normal sized cardiomediastinal silhouette. There is no evidence of consol idation, mass, or pleural effusion. The bones are unremarkable. IMPRESSION: No evidence of acute cardiopulmonary disease. POS: [facility]
== END 2017-10-28 10:34 | disposition home or self-care (01) ==
LOC: RAD 10:33
PROVIDERS: ATTEND Internal Medicine Critical Care Medicine
DX: R06.00 Dyspnea, unspecified (principal)
CPT/HCPCS: 71046

== ENCOUNTER 2018-01-14 10:13 | Emergency (ER) | payer BC ==
[2018-01-14 11:20] LABS: #Basophils 0.1 thou/uL (0.0-0.2); #Eosinphils 0.2 thou/uL (0.0-0.7); #Monocytes 0.6 thou/uL (0.11-0.59); #Neutrophils 7.2 thou/uL (1.40-6.50); %Basophils 0.8 % (0.0-1.0); %Lymphocytes 19.5 % (21.0-51.0); %Monocytes 6.4 % (0.0-10.0); %Neutrophils 71.4 % (42.0-75.0); Hemoglobin 14.8 g/dL (14.0-18.0); Mean Corpuscular HGB CONC 35.4 g/dL (32.0-36.0); Mean Corpuscular Hemoglobin 31.7 pg (27.0-31.0); Mean Corpuscular Volume 89.7 fL (78.0-98.0); Mean Platelet Volume 6.8 fL (7.4-10.4); Platelet Count 240 thou/uL (130-400); RBC Distribution Width 10.9 % (11.5-14.5); Red Blood Cell (RBC) Count 4.67 mill/uL (4.70-6.10); White Blood Cell (WBC) Count 10.1 thou/uL (4.8-10.8)
[2018-01-14 11:23] LABS: ALT (SGPT) 25 U/L (8-55); AST (SGOT) 23 U/L (5-34); Albumin 4.5 g/dL (3.5-5.0); Alkaline Phosphatase 39 U/L (40-150); Anion Gap 14 mmol/L (10-20); BUN (Urea Nitrogen) 16 mg/dL (8.4-25.7); Bilirubin, Total 0.5 mg/dL (0.2-1.2); Calc. Creatinine Clearance 0 mL/min (70-130); Calcium 9.2 mg/dL (7.8-10.44); Carbon Dioxide 25 mmol/L (22-29); Chloride 105 mmol/L (98-107); Estimated GFR-MDRD 66; Globulin 2.3 g/dL (2.4-3.5); Glucose 122 mg/dL (70-105); Potassium 4.5 mmol/L (3.5-5.1); Protein, Total 6.8 g/dL (6.0-8.3); Sodium 139 mmol/L (136-145)
--- NOTE | 2018-01-14 11:42 | ULT ---
ULTRASOUND WITH DOPPLER DUPLEX VENOUS LOWER EXTREMITY RIGHT: HISTORY: 58-year-old male with right lower extremity pain. TECHNIQUE: Color flow Doppler, spectral waveform analysis of pulsed Doppler, and butler-scale imaging with sohail yoly and augmentation, were used to evaluate the right common femoral, femoral, popliteal, posterior tibial, and superficial femoral, veins; and the proximal portions of the profunda femoral and greater saphenous, veins. FINDINGS: There is normal compressibility, demonstration of blood flow by color Doppler and pulsed Doppler, and response to augmentation, in all interrogated veins. IMPRESSION: Negative. No deep vein thrombosis in the right lower extremity. jn [] POS: [facility]
== END 2018-01-14 12:35 | disposition home or self-care (01) ==
LOC: SCSER 10:13
DX: S76.911A Strain of unspecified muscles, fascia and tendons at thigh level, right thigh, initial encounter (principal); J45.909 Unspecified asthma, uncomplicated; K21.9 Gastro-esophageal reflux disease without esophagitis; Z87.891 Personal history of nicotine dependence; Z79.899 Other long term (current) drug therapy; X50.1XXA Overexertion from prolonged static or awkward postures, initial encounter
CPT/HCPCS: 36415; 80053; 85025; 85379

== ENCOUNTER 2018-12-15 12:45 | Outpatient (CLI) | payer BC ==
--- NOTE | 2018-12-15 13:11 | RAD ---
EXAM: Chest 2 views: HISTORY: Dyspnea COMPARISON: 10/28/2017 FINDINGS: There is a normal-sized cardiomediastinal silhouette. There is no evidence of consolidation, mass, or pleural effusion. Postsurgical changes are seen in the spine. IMPRESSION: No evidence of acute cardiopulmonary disease
== END 2018-12-15 12:46 | disposition home or self-care (01) ==
LOC: RAD 12:45
PROVIDERS: ATTEND Internal Medicine Critical Care Medicine
DX: R06.00 Dyspnea, unspecified (principal)
CPT/HCPCS: 71046

== ENCOUNTER 2023-04-30 13:40 | Outpatient (CLI) | payer OTHER | END 2023-04-30 13:41 | disposition home or self-care (01) | LOC: BICRAD 13:40 | PROVIDERS: ATTEND Family Medicine | DX: G89.21 Chronic pain due to trauma (principal); M16.12 Unilateral primary osteoarthritis, left hip ==